=== PATIENT | male | born 1935 | race Caucasian/White ===

== ENCOUNTER 2017-06-08 07:43 | Day surgery (SDC) | payer MEDICARE ==
[~2017-06-08] VITALS: Ht 177.8 cm; Wt 81.2 kg
[~2017-06-08 07:43] MED LIST: ARTH650T6 PO; ASPI81 PO; ERGO50000 PO; FURO8SOL PO; METO25 PO; MEVA40TA6 PO; PLAV75TA PO; RANI300T PO; TAB-TAB PO; [UNRECOGNIZED DRUG - CODE] PO
[2017-06-08] MEDS ORDERED: IOHEXOL 350 MG/ML 50 ML BTL (for Cath Lab) OTHER ONE (07:44)
[2017-06-08] MEDS ORDERED: NS 1000P @30 MLS/HR (KVO) IV SCH (08:30)
[2017-06-08] MEDS ORDERED: FISH1000 PO (08:37)
[2017-06-08] MEDS ORDERED: ACET650T67 PO (08:37)
[2017-06-08] MEDS ORDERED: TEMA30CA PO (08:37)
[2017-06-08] MEDS ORDERED: DOCU50CA5 PO (08:37)
[2017-06-08] MEDS ORDERED: ECASA81 PO (08:37)
[2017-06-08] MEDS ORDERED: DOCU1CAP66 PO (08:37)
[2017-06-08] MEDS ORDERED: IPRASOL INH (08:37)
[2017-06-08] MEDS ORDERED: MULTTAB67 PO (08:37)
[2017-06-08] MEDS ORDERED: CHOL1CAP34 PO (08:37)
[2017-06-08] MEDS ORDERED: LOVA40TA PO (08:37)
[2017-06-08] MEDS ORDERED: METO25TA3 PO (08:37)
[2017-06-08] MEDS ORDERED: HYDR-3288 PO (08:37)
[2017-06-08] MEDS ORDERED: FURO80TA PO (08:37)
[2017-06-08] MEDS ORDERED: CLOP75TA PO (08:37)
[2017-06-08] MEDS ORDERED: RANI150T PO (08:37)
[2017-06-08] MEDS ORDERED: LISI-519 PO (08:37)
[2017-06-08 08:48] LABS: AUTOMATED NEUTROPHIL # 5.6 TH/MM3 (1.8-7.7); BASOPHIL # 0.1 TH/MM3 (0-0.2); BASOPHIL % 0.5 % (0.0-2.0); EOSINOPHIL # 0.5 TH/MM3 (0-0.4); EOSINOPHIL % 4.1 % (0.0-4.0); HEMOGLOBIN 15.5 GM/DL (13.0-17.0); MEAN CELL VOLUME 91.1 FL (80.0-100.0); MEAN CORPUSCULAR HEMOGLOBIN 30.6 PG (27.0-34.0); MEAN CORPUSCULAR HGB CONC 33.6 % (32.0-36.0); MEAN PLATELET VOLUME 8.4 FL (7.0-11.0); MONO % 13.6 % (0.0-8.0); MONOCYTE # 1.6 TH/MM3 (0-0.9); NEUT % 47.8 % (16.0-70.0); PLATELET COUNT 268 TH/MM3 (150-450); RED BLOOD COUNT 5.05 MIL/MM3 (4.50-5.90); RED CELL DISTRIBUTION WIDTH 13.5 % (11.6-17.2); WHITE BLOOD COUNT 11.7 TH/MM3 (4.0-11.0)
[2017-06-08 08:51] VITALS: BP 180/85; PULSE 71; RESP 18; TEMP 98; O2SAT 95
[2017-06-08 08:57] LABS: INTERNATIONAL NORMALIZED RATIO 1.1 RATIO; PROTHROMBIN TIME - PATIENT 10.7 SEC (9.8-11.6)
[2017-06-08 09:04] LABS: BICARBONATE 29.3 MEQ/L (21.0-32.0); CALCIUM 9.4 MG/DL (8.5-10.1); CREATININE 1.15 MG/DL (0.60-1.30)
[2017-06-08] MEDS ORDERED: HEPARIN-NS/PF FLUSH BAG 2,000 ML IV FLUSH ONE (10:43)
[2017-06-08] MEDS ORDERED: MIDAZOLAM HCL 2 MG/2 ML VIAL ONE ×2 (10:53→11:13)
[2017-06-08] MEDS ORDERED: NITROGLYCERIN INJ 5 ML ONE (10:53)
[2017-06-08] MEDS ORDERED: HEPARIN SODIUM - IV 10,000 UNITS/10 ML VIAL ONE (10:53)
[2017-06-08] MEDS ORDERED: BIVALIRUDIN 250 MG VIAL ONE (11:19)
[2017-06-08] MEDS ORDERED: PHENYLEPHRINE HCL 10 MG/ML VIAL ONE (11:37)
[2017-06-08] MEDS ORDERED: SODIUM CHLOR 0.9% 1000 ML INJ 1,000 ML IV SCH (11:54)
[2017-06-08] MEDS ORDERED: MISC INFORMATION XX ONE (12:00)
[2017-06-08] MEDS ORDERED: oxyCODONE/ACETAMINOPHEN 5 MG/325 MG TAB PO PRN (12:00)
[2017-06-08] MEDS ORDERED: oxyCODONE/ACETAMINOPHEN 10 MG/325 MG TAB PO PRN (12:00)
[2017-06-08] MEDS ORDERED: LIDOCAINE 2% JELLY 30 ML TUBE TOP PRN (12:00)
--- NOTE | 2017-06-08 12:03 | CATHPROC ---
[place] HIS Report Study Information Study Number Admission Scheduled Start Study Start [id number] Jun 08 2017 7:43AM 06/08/2017 Jun 08 2017 10:36AM [place] Service Cardiac Catheterization Admit Source Facility Department Other [facility] - Rn Radiation Oncology Physician and Clinical Staff Initial Marc Wallace [employer] Designer Chay Dumont,TREASURE Recorder Prisca Lugo,RT(R) Scrub Alyssa Alcaraz ,RT(R) Procedures Performed Procedure Location (Site) Vessel Name Coronary Angiograms RCA Right Coronary Drug Eluting Inflatio LAD Prox Left Coronary Drug Eluting Inflatio RCA Mid Right Coronary L Heart Cath PTCA RCA Mid Right Coronary PTCA RCA Prox Right Coronary Wire insertion Radial (right) Radial Art. Equipment Time Bag Filler Description Size Mfg Part Number Used/Scraped TRANSDUCER, TRUWAVE [id number] 10:37 RIVERO HAYWOOD * Used W/STOCKCOCK *[id number] *[id number] [phone] *[id number] [phone] *[id number] 10:37 I-Stand PACK, CCL CUSTOM * Used *[id number] 10:37 I-Stand SUPPORT, ARTERIAL ADULT [id number] *[id number] Used [id number] 10:37 [employer] PACER PEN, SKIN DUAL W/ RULER * Used *[id number] BALLOON, 3.25 X 15MM NC [id number] 11:35 MEDTRONIC 15MM Used EUPHORA *[id number] 11:09 MEDTRONIC JR 5.0 DXTERITY CATHETER fr 5 [id number] Used [id number] 11:45 MEDTRONIC STENT, 2.5 15MM CRISTIAN 2.5 15MM Used *[id number] 11:30 [employer]IC STENT, 3.0 15MM CRISTIAN 3.0 15MM Used *[id number] 11:33 [employer] 30 BETZY INDEFLATOR Used *[id number] BAND, RADIAL COMPRESSION TR [id number] 11:50 [employer] 29CM Used LARGE 29 *[id number] SHEATH, FR6 RADIAL PRELUDE 10:37 [employer] FR 6 [id number] Used EASE 11CM [id number] 10:37 [employer] WIRE, EXCHANGE 260CM 3MMJ 260CM Used *[id number] 10:37 NYCOMED OMNIPAQUE, 350 MG, 150ML 150ML [id number] Used [id number] 10:37 [employer],WARM AIR CCL * Used *[id number] WIRE, RUNTHROUGH NS FLOPPY [id number] 11:24 [employer] 180CM Used .014 180CM *[id number] Equipment Model, Serial, Lot Number and Expiration Data Description Model Number Serial Number Lot Number Expiration Date BALLOON, 3.25 X 15MM NC [id number] 11-18-2018 EUPHORA JR 5.0 DXTERITY CATHETER [id number] 10-10-2019 STENT, 2.5 15MM CRISTIAN [id number] 09-18-2018 STENT, 3.0 15MM CRISTIAN [id number] 02-17-2019 History: Current Medications Medication Dosage/Unit Route Frequency Last Date/Time Taken ASA PLAVIX LISINOPRIL LOPRESSOR History: Allergies Allergy Reaction No Known Allergies History: Risk Factors Family History of Hypertension Dyslipidemia Previous [place] Previous Heart Failure Premature CAD Yes Yes Yes No No Prior Valve Prior PCI Prior PCIDate Prior CABG Surgery No Yes 02/10/2013 No Cerebrovascular Peripheral Artery Chronic Lung On Dialysis Diabetes Disease Disease Disease No No Yes Yes Yes History: Stress Tests Stress or Imaging Studies Performed Yes Standard Exercise Stress Test No Stress Echo No Stress Test SPECT Yes Stress Test CMR No Cardiac CTA Coronary Calcium Score No No History: Other Current Smoker Method Quit Packs a Day Years Used Pack Years No Cigarettes 28 Years Ago 3 38 114 Labs Hgb (g/dl) Hct (%) RBC (MIL/MM3) WBC (l/cumm) Platelets (thousands) 11.60-17.00 35.00-51.00 4.00-5.90 4.00-11.00 150.00-450.00 15.5 46 5 11.7 268 Glucose (mg/dl) BUN (mg/dl) Creatinine (mg/dl) BUN:Creatinine (1:x) 74.00-106.00 7.00-18.00 0.50-1.30 10.00-20.00 99 21 1.1 19.1 Na (meq/l) K (meq/l) Cl (meq/l) CO2 (mmol/L) Ca (mg/dl) 136.00-145.00 3.50-5.10 98.00-107.00 21.00-32.00 8.50-10.10 139 3.6 102 29.3 9.4 PTT (sec) INR (PTT:PT) 24.30-30.10 0.90-1.10 31.1 1.1 CPK-MB (ng/ML) 0.50-3.60 Not Drawn Medication Medication Total Dose (Bolus/Oral) Medication Total Dosage/Unit 1% XYLOCAINE 20 mL ANGIOMAX BOLUS 12.1 mL FENTANYL 75 mcg HEPARIN 5000 units NTG (IC) 100 mcg VERSED 3 mg Medications (Bolus/Oral) Medication Time Given Dosage/Unit Administered By Reason VERSED 06/08/2017 11:05:17 AM 2 mg Chay Dumont 2 mg VERSED given in lab by Chay Dumont RN in Left Antecubital via Peripheral IV. Ordered by Marc Garcia. FENTANYL 06/08/2017 11:05:23 AM 50 mcg Chay Dumont 50 mcg FENTANYL given in lab by Chay Dumont RN in Left Antecubital via Peripheral IV. Ordered by Marc Kim. 1% XYLOCAINE 06/08/2017 11:07:52 AM 20 mL Marc Kim 20 mL 1% XYLOCAINE given in lab by Marc Kim in Right Radial via Subcutaneous. FENTANYL 06/08/2017 11:13:30 AM 25 mcg Chay Dumont 25 mcg FENTANYL given in lab by Chay Dumont RN in Left Antecubital via Peripheral IV. Ordered by Marc Kim. VERSED 06/08/2017 11:13:50 AM 1 mg Chay Dumont 1 mg VERSED given in lab by Chay Dumont RN in Left Antecubital via Peripheral IV. Ordered by Marc Garcia. NTG (IC) 06/08/2017 11:15:20 AM 100 mcg Marc Kim 100 mcg NTG (IC) given in lab by Marc Kim in Right Radial via Intra-arterial. HEPARIN 06/08/2017 11:15:38 AM 5000 units Chay Dumont 5000 units HEPARIN given in lab by Chay Dumont RN in Left Antecubital via Peripheral IV. Ordered by Marc Kim. ANGIOMAX BOLUS 06/08/2017 11:25:57 AM 12.1 mL Chay Dumont 12.1 mL ANGIOMAX BOLUS given in lab by Chay Dumont RN in Left Antecubital via Peripheral IV. Orde red by Marc Kim. Medication (Drip) Medication Time Given Dosage/Unit Concentration/Unit Diluent (ml) Solution ANGIOMAX DRIP 06/08/2017 11:26:31 AM 1.767 mg/kg/hr 250 mg 50 NaCl .9 1.767 mg/kg/hr ANGIOMAX DRIP given in lab by Chay Dumont RN in Left Antecubital via Peripheral IV . Pump/Drip Flow = 28.7 ml/hr using NaCl .9 with a concentration of 250 mg in 50 ml. Ordered by Marc Kim. IV Solutions 06/08/2017 10:37:16 AM 50 mL (IV) NaCl .9 IV Solutions given in lab by Chay Dumont RN in Left Antecubital via Peripheral IV. Pump/Drip Flow using NaCl .9. Initial Case Assessment Cardiovascular HR Rhythm NIBP Chest Pain 71 SR 163/85 0 Edema Present Skin color Skin Mild Normal Warm Dry Circulatory - Right Pulses Dorsalis Pedis Femoral Radial 1 2 3 Scale (0,1,2,3,4,d) Scale (0,1,2,3,4,d) Neurological State Oriented to time-place- Alert Moves all extremities person Respiration - General Respiration Rate SpO2 (%) (B/min) 13 95 Chronological Log Time Study Chronological Log 10:36:56 Patient arrived via Bed. 10:36:58 Patient Name, D.O.B, / Armband Verified By R.N. 10:36:58 Consent signed by the physician and the patient and verified by the Rn Radiation Oncology staff. 10:36:59 Pre-op and post- op instructions given; patient acknowledges understanding of instruction s. 10:36:59 Verbal Stimulation=2 Physical Stimulation=2 Airway=2 Respiration=2 TOTAL=8. (0=absent, 1= limited, 2=present) 10:37:02 Presedation assessment performed by Rn Radiation Oncology RN. 10:37:04 Allens test performed on the right radial and ulnar artery. 10:37:12 Patient has been NPO for More than 6Hrs. 10:37:12 Skin Breakdown- none per patient. 10:37:13 Patient Warmer Placed on the Table. 10:37:14 [place] Prominences Protected 10:37:15 A # 20 IV was noted in the Antecubital (left). Grade = 0 10:37:16 IV Solutions given in lab by Chay Dumont RN in Left Antecubital via Peripheral IV. Pu mp/Drip Flow using NaCl .9. 10:37:17 History and physical on the chart or being dictated. Assessment: Initial Case, HR=71 BPM, Rhythm=SR, EXBW=693/85 mmhg, Chest Pain=0, Edema=Mild, Col or=Normal, Skin = Warm, Dry 10:37:18 Right Pulses: Gopal Ped=1, Femoral=2, Radial=3 Neurological: State=Alert, Ox3, GUTIERREZ Respiration: Resp=13 B/min, SpO2=95 % 10:44:50 Reference ECG taken Vitals capture started with the following parameters, Patient=Adult, Interval=5 min, Initial Pr ogcvhg=551 mmHg, 10:50:13 Deflation Rate=5 mmHg, Cuff placed on Left Leg 10:50:46 CQ=875 bpm, JZEE=554/85 mmhg, SpO2=95.0 %, Resp=16 B/min 10:55:53 HR=66 bpm, DUXR=608/69 mmhg, SpO2=96.0 %, Resp=12 B/min 10:59:25 Pressure channel 1 zeroed. 11:00:25 paged 11:00:54 HR=66 bpm, UBOE=000/69 mmhg, SpO2=97 %, Resp=16 B/min 11:01:38 MD responded 11:04:06 MD arrived. 11:05:17 2 mg VERSED given in lab by Chay Dumont RN in Left Antecubital via Peripheral IV. Order ed by Marc Kim. 11:05:23 50 mcg FENTANYL given in lab by Chay Dumont RN in Left Antecubital via Peripheral IV. O rdered by Marc Kim. 11:05:55 HR=66 bpm, CMQP=728/67 mmhg, SpO2=97.0 %, Resp=8 B/min Time Out. Correct patient, correct procedure, correct physician, power injector not loaded with contrast with surgical 11:07:36 team present. Time Out Concurred by MD and individual staff in procedure. 11:07:50 Case Start 11:07:52 20 mL 1% XYLOCAINE given in lab by Marc Kim in Right Radial via Subcutaneous. 11:10:56 HR=60 bpm, LGUN=598/66 mmhg, SpO2=93 %, Resp=13 B/min 11:13:30 25 mcg FENTANYL given in lab by Chay Dumont, RN in Left Antecubital via Peripheral IV. O rdered by Marc Kim. 11:13:50 1 mg VERSED given in lab by Chay Dumont, TREASURE in Left Antecubital via Peripheral IV. Order ed by Marc Kim. 11:14:06 Access site was Right Radial Artery. A SHEATH, FR6 RADIAL PRELUDE EASE 11CM FR 6 was advanced into the Radial (right) using the Perc utaneous 11:14:42 technique. 11:15:20 100 mcg NTG (IC) given in lab by Marc Kim in Right Radial via Intra-arterial. 11:15:38 5000 units HEPARIN given in lab by Chay Dumont, TREASURE in Left Antecubital via Peripheral IV . Ordered by Marc Kim. 11:15:53 HR=68 bpm, NIBP=90/51 mmhg, SpO2=90.0 %, Resp=11 B/min A JR 5.0 DXTERITY CATHETER fr 5 was advanced over a wire. OMNIPAQUE, 350 MG, 150ML 150ML was us ed for 11:15:53 injections. 11:16:28 The RCA was injected and visualized at various angles. OMNIPAQUE, 350 MG, 150ML 150ML used . 11:16:32 NIBP STAT measurement started. 11:16:59 HR=73 bpm, NIBP=92/46 mmhg, SpO2=89.0 %, Resp=10 B/min After removing the current catheter a JL 3.5 INFINITI CATHETER FR 5 was advanced over a WIRE, E XCHANGE 260CM 11:18:48 3MMJ 260CM. Recorded Pressure: Ao, HR=74, Condition=Condition 1 11:20:03 (Aorta) Ao 78/37/51 11:20:44 HR=72 bpm, NGXG=004/50 mmhg, SpO2=93.0 %, Resp=10 B/min 11:25:45 HR=74 bpm, QHHU=816/59 mmhg, SpO2=91.0 %, Resp=11 B/min 12.1 mL ANGIOMAX BOLUS given in lab by Chay Dumont RN in Left Antecubital via Peripheral IV . Ordered by Julio 11::57 Marc. After removing the current catheter a JR 5.0 GUIDE CATHETER FR 6 was advanced over a WIRE, EXCH LAURENCE 260CM 11:26:27 3MMJ 260CM. 1.767 mg/kg/hr ANGIOMAX DRIP given in lab by Chay Dumont RN in Left Antecubital via Periphe ral IV. Pump/Drip Flow 11:26:31 = 28.7 ml/hr using NaCl .9 with a concentration of 250 mg in 50 ml. Ordered by Marc Kim. 11:28:00 A WIRE, RUNTHROUGH NS FLOPPY .014 180CM 180CM was inserted via Radial (right). 11:28:28 Interventional wire has crossed the lesion in the RCA 11:30:50 HR=69 bpm, BBPW=970/57 mmhg, SpO2=91.0 %, Resp=12 B/min A STENT, 3.0 15MM CRISTIAN 3.0 15MM was advanced through a JR 5.0 GUIDE CATHETER FR 6 over a WIRE, 11:32:35 RUNTHROUGH NS FLOPPY .014 180CM 180CM. A STENT, 3.0 15MM CRISTIAN 3.0 15MM was deployed using a 30 BETZY INDEFLATOR at 18 atmospheres for 13 seconds in 11:32:44 the RCA Mid. 11:33:02 Re-inflated the stent balloon in the RCA Prox to 14 BETZY for 20 seconds. 11:33:38 Delivery device removed 11:35:51 HR=66 bpm, HQXA=750/59 mmhg, SpO2=92.0 %, Resp=14 B/min A BALLOON, 3.25 X 15MM NC EUPHORA 15MM was inserted over WIRE, RUNTHROUGH NS FLOPPY .014 180CM 11:36:14 180CM via the Radial (right). A BALLOON, 3.25 X 15MM NC EUPHORA 15MM over a WIRE, RUNTHROUGH NS FLOPPY .014 180CM 180CM in th e RCA 11:37:18 Mid was inflated using a 30 BETZY INDEFLATOR at 18 betzy for 10 sec. A BALLOON, 3.25 X 15MM NC EUPHORA 15MM over a WIRE, RUNTHROUGH NS FLOPPY .014 180CM 180CM in th e RCA 11:37:48 Mid was inflated using a 30 BETZY INDEFLATOR at 20 betzy for 12 sec. A BALLOON, 3.25 X 15MM NC EUPHORA 15MM over a WIRE, RUNTHROUGH NS FLOPPY .014 180CM 180CM in th e RCA 11:38:01 Mid was inflated using a 30 BETZY INDEFLATOR at 20 betzy for 9 sec. Recorded Pressure: Ao, HR=68, Condition=Condition 1 11:38:26 (Aorta) Ao 101/45/66 A BALLOON, 3.25 X 15MM NC EUPHORA 15MM over a WIRE, RUNTHROUGH NS FLOPPY .014 180CM 180CM in th e RCA 11:38:35 Prox was inflated using a 30 BETZY INDEFLATOR at 20 betzy for 20 sec. A BALLOON, 3.25 X 15MM NC EUPHORA 15MM over a WIRE, RUNTHROUGH NS FLOPPY .014 180CM 180CM in th e RCA 11:39:03 Prox was inflated using a 30 BETZY INDEFLATOR at 20 betzy for 20 sec. 11:40:15 Balloon Removed. 11:40:45 Wire removed After removing the current catheter a XBLAD 4.0 GUIDE CATHETER FR 6 was advanced over a WIRE, E XCHANGE 11:40:54 260CM 3MMJ 260CM. 11:41:29 HR=70 bpm, PXFW=029/63 mmhg, SpO2=95 %, Resp=15 B/min 11:44:41 A WIRE, RUNTHROUGH NS FLOPPY .014 180CM 180CM was inserted via Radial (right). 11:45:51 HR=69 bpm, XAHP=221/66 mmhg, SpO2=94 %, Resp=16 B/min A STENT, 2.5 15MM CRITSIAN 2.5 15MM was advanced through a XBLAD 4.0 GUIDE CATHETER FR 6 over a WIR E, 11:46:17 RUNTHROUGH NS FLOPPY .014 180CM 180CM. A STENT, 2.5 15MM CRISTIAN 2.5 15MM was deployed using a 30 BETZY INDEFLATOR at 16 atmospheres for 8 seconds in 11:46:31 the LAD Prox. 11:47:29 Delivery device removed 11:50:09 Case End 11:50:51 HR=71 bpm, TYBL=727/76 mmhg, SpO2=93.0 %, Resp=22 B/min 11:57:26 Vitals capture stopped. Radial Compression Device Used. 12 mLs of air placed in BAND, RADIAL COMPRESSION TR LARGE 29 29 CM. Affected 11:57:31 hand 98 % O2 saturation. 11:57:49 No case complications noted. 11:57:50 Cine recording checked. 11:57:52 Bedside Report will be given. 11:57:53 Implantable Device card placed in patient's chart. 11:57:58 Holding Area notified of successful intervention. 11:58:50 A Left Heart Cath was performed. 12:00:00 Patient moved to stretcher End Study - Contrast Media Used In Study Contrast Total Opened (mL) Total Used (mL) Total Wasted (mL) Omnipaque 75 75 0 End Study - Maximum Contrast Load Max Contrast Load (mL) 369.0 End Study - Radiation Exposure Fluoro Time (minutes) 7.3 End Study - Patient Disposition Complications Transferred To Interventional Outcome No Telemetry Bed successful
[2017-06-08] MEDS ORDERED: BACITRACIN OINT 0.9 GM PKT TOP ONE (13:00)
--- NOTE | 2017-06-08 13:41 | MA ---
cc: Marc Kim MD 06/08/2017 INDICATION: Unstable angina. PROCEDURE PERFORMED: 1. Fluoroscopy with interpretation. 2. Coronary angiography. 3. Percutaneous intervention with drug-eluting stent to the mid-right coronary artery and mid-left anterior descending coronary artery. METHOD: The risks, benefits and alternatives were discussed with the patient. The patient understood, consented to the procedure. The patient was brought into the catheterization lab, placed on the catheterization table. The right wrist was prepped and draped in sterile fashion. The right wrist was anesthetized with 2% lidocaine. The right radial artery was cannulated and a 6-Icelandic, 11-cm sheath was placed without difficulty. CORONARY ANGIOGRAPHY: 1. Left main coronary artery is angiographically normal. 2. Left anterior descending coronary has a 75% stenosis discrete in the mid-segment. The proximal segment has 30% stenosis. The remainder of the vessel has mild luminal irregularities. 3. Left circumflex has mild luminal irregularities, gives rise to an obtuse marginal branch. 4. Right coronary artery is a dominant vessel giving rise to a posterior descending and posterolateral branch. The right coronary has stents throughout the entire mid-segment. The mid-right has a 75% stenosis present. PERCUTANEOUS INTERVENTION: Right coronary was selectively engaged with a 6-Icelandic, JR5 guide catheter. A 0.014-inch, 180-cm Terumo Run-Through wire was navigated down the distal posterior descending branch. A 3.0 x 15-mm RX Resolute [place] stent was deployed in the mid-segment. The stent was post-dilated with a 3.25 x 12-mm Non-Compliant balloon to 20 atmospheres. There was some damping upon engagement of the ostium of the right coronary so we post-dilated that with a 3.25 balloon to 18 atmospheres. Repeat angiography showed no residual stenosis, ZIGGY-3 flow. Attention was then directed towards the mid-left anterior descending coronary stenosis. A XB LAD 4.0 guide catheter was used to selectively engage the left main coronary artery. A 0.014-inch, 80-cm Terumo Run-Through wire was navigated down to the distal left anterior descending coronary artery. A 2.5 x 15-mm RX drug-eluting stent Resolute Franco was advanced to the mid-segment and deployed. Repeat angiography showed no residual stenosis, ZIGGY-3 flow. The wire was removed, guide catheter removed, HemoBand applied. CONCLUSIONS: 1. 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 2. Successful percutaneous intervention with drug-eluting stents to the mid-right and mid-left anterior descending coronary artery. PLAN: Hopefully this will translate well to symptomatic improvement. The patient will be continued on aspirin, Plavix, statin, beta varsha therapy in addition to LAVERN inhibitor. We will monitor for any post-procedural complication. If he does well he potentially could go home today. Right radial HemoBand will be removed in two hours. MD GERTRUDE Howell/ERIN/rr , 11:59 AM , 12:31 PM
--- NOTE | 2017-06-10 08:11 | EKG ---
Date Performed: 06/08/2017 Time Performed: 08:41:58 PTAGE: 81 years EKG: Sinus rhythm with atrial premature complexes Since PREVIOUS TRACING , no significant change noted PREVIOUS TRACIN02/11/2013 04.37 DOCTOR: Jose Luis Garber Interpretating Date/Time 06/10/2017 08:09:31
--- NOTE | 2017-06-10 15:07 | EKG ---
Date Performed: 06/08/2017 Time Performed: 16:33:32 PTAGE: 81 years EKG: Sinus rhythm . Borderline ECG PREVIOUS TRACING : 06/08/2017 08.41 DOCTOR: Marc Kim Interpretating Date/Time 06/10/2017 15:05:57
== END 2017-06-08 17:04 | disposition home or self-care (01) ==
LOC: HDOC 07:43 → HDIC 07:44 → HDOC 17:04
PROVIDERS: ATTEND Internal Medicine
DX: I25.110 Atherosclerotic heart disease of native coronary artery with unstable angina pectoris (principal); I10 Essential (primary) hypertension; E78.5 Hyperlipidemia, unspecified; J44.9 Chronic obstructive pulmonary disease, unspecified; Z87.891 Personal history of nicotine dependence; Z79.82 Long term (current) use of aspirin
CPT/HCPCS: 80048; 85025; 85610; 85730; 86850; 86900; 86901; 92928; 92929; 93005; 93454; 99152; 99153; C1725; C1769; C1874; C1887; C1893; J0583; J1644; J2250; J2370; J3010; Q9967